=== PATIENT | female | born 1965 | race Caucasian/White ===

== ENCOUNTER → 2016-11-23 | Outpatient (CLI) | payer OTHER ==
[~2016-11-23] MED LIST: HYDROCODONE-APA1 T30 PO
== END | disposition home or self-care (01) ==
LOC: CECH 13:22
DX: R07.9 Chest pain, unspecified (principal); I08.1 Rheumatic disorders of both mitral and tricuspid valves
CPT/HCPCS: 93306

== ENCOUNTER → 2016-11-24 | Outpatient (CLI) | payer OTHER ==
--- NOTE | ~2016-11-24 | ST ---
Unit #: [id number] #: [id number] Patient: ELIZABETH GALEANA [id number] [address] [place], [place] [address] [id number] MR#: [id number] NAME: ELIZABETH GALEANA. : 1965 SEX: F STUDY DATE/TIME: 11/24/2016 UNIT: CN ROOM: STUDY DESCRIPTION: Stress nuclear and ECG Attending Physician: Reinaldo Simpson M.D. Referring Physician: Reinaldo Simpson M.D. Primary Care Physician: Abdifatah Nixon M.D. CARDIOLOGY REPORT EXAM Stress nuclear and ECG combined. INDICATIONS Chest pain, hypertension, dyslipidemia, tobacco abuse, dyspnea for the diagnosis of obstructive coronary disease contributing to the patient's symptoms. SUMMARY The patient exercised on a Venkata protocol to maximal effort. The patient's heart rate increased from 82 to 166 (99%), and blood pressure increased from 136/91 to 180/90. The stress ECG showed no diagnostic ST shifts, no dysrhythmias and no heart block. Resting ECG was abnormal with flattened T waves in AVL and downsloping ST segments in AVL, although only 0.2 mm. There were no dysrhythmias noted during stress. The patient completed a total of 7 minutes, 11 seconds of exercise. Perfusion images demonstrate diaphragmatic attenuation artifact, both at rest and stress, primarily at the base of the left ventricle. End diastolic volume is 84 mL. Ejection fraction is calculated at 67%. Perfusion images demonstrate intestinal artifact but otherwise normal perfusion throughout the myocardium. Summed stress score is 1, summed difference score is 1. Planar images demonstrate no significant patient motion either at rest or stress. There is no increased lung uptake, LV or RV enlargement. Summed stress score is 1. IMPRESSION 1. Myocardial perfusion scan show no ischemia or infarction. 2. Normal wall motion with excellent ejection fraction. 3. Moderate deconditioning based on the patient's age. 4. Normal heart rate response. 5. Blood pressure response is normal, although at stage 1 the blood pressure had already increased to 154/94. 1. Dictated by... Mehul Bailey M.D. ELICEO/cande TD: 11/27/2016 09:38 JOB #: [id number] Unit #: [id number] #: [id number] Patient: ELIZABETH GALEANA CARDIOLOGY REPORT X Mehul Bailey MD CARDIOLOGY REPORT
== END | disposition home or self-care (01) ==
LOC: CNUC 06:03
DX: R07.9 Chest pain, unspecified (principal)
CPT/HCPCS: 78452; 93017; A9500